=== PATIENT | male | born 1960 | race Caucasian/White ===

== ENCOUNTER → 2017-08-29 | Outpatient (CLI) | payer OTHER ==
[2017-08-29 10:35] LABS: HEMATOCRIT 47.2 % (42.0-52.0); HEMOGLOBIN 16.6 g/dl (13.5-18.0); MEAN CELL VOLUME 102 fl (80.0-100.0); MEAN CORPUSCULAR HEMOGLOBIN 36 pg (27.0-31.0); MEAN CORPUSCULAR HGB CONC 35 g/dl (33.0-37.0); MEAN PLATELET VOLUME 10.2 fl (7.4-10.4); PLATELET COUNT 257 K/mm3 (130-400); RED BLOOD COUNT 4.63 M/mm3 (4.20-5.60); REDCELL DISTRIBUTION WIDTH-CV 14.4 % (11.5-14.5)
[2017-08-29 10:55] LABS: ADJUSTED CALCIUM 8.7 mg/dL (8.4-10.2); ALBUMIN 3.9 gm/dL (3.5-5.0); BILIRUBIN,TOTAL 0.5 mg/dL (0.0-1.0); CALCIUM 8.6 mg/dL (8.4-10.2); CREATININE, serum 0.78 mg/dL (0.66-1.25); POTASSIUM 4.7 mmol/L (3.4-5.0); TOTAL PROTEIN 6.6 gm/dL (6.4-8.2)
[2017-08-29 11:24] LABS: THYROID STIMULATING HORMONE 1.84 uIU/mL (0.465-4.680)
== END ==
LOC: COL.LAB 10:00
DX: I10 Essential (primary) hypertension (principal)

== ENCOUNTER 2018-04-21 15:45 | Emergency (ER) | payer OTHER ==
[~2018-04-21] VITALS: Ht 170.2 cm; Wt 77.3 kg
[2018-04-21 15:45] VITALS: TEMP 98.7
[2018-04-21] MEDS ORDERED: PRINIVIL20 MG PO (15:58)
[2018-04-21 17:30] LABS: BASO % 0.5 % (0.0-2.0); EOS # 0.1 (0.0-0.7); EOS % 1.1 % (0-4.0); GRAN # 6.2 (1.4-6.5); GRAN % 71.1 % (42.2-75.2); HEMATOCRIT 37.6 % (42.0-52.0); HEMOGLOBIN 12.8 g/dl (13.5-18.0); LYMPH # 1.5 (1.2-3.4); LYMPH % 17.1 % (20.0-51.0); MEAN CELL VOLUME 101 fl (80.0-100.0); MEAN CORPUSCULAR HEMOGLOBIN 34 pg (27.0-31.0); MEAN CORPUSCULAR HGB CONC 34 g/dl (33.0-37.0); MEAN PLATELET VOLUME 10.3 fl (7.4-10.4); MONO # 0.8 (0.1-0.6); MONO % 9.5 % (1.7-9.3); PLATELET COUNT 197 K/mm3 (130-400); RED BLOOD COUNT 3.74 M/mm3 (4.20-5.60); REDCELL DISTRIBUTION WIDTH-CV 13.4 % (11.5-14.5)
[2018-04-21 17:50] LABS: BILIRUBIN,TOTAL 1.1 mg/dL (0.0-1.0); CALCIUM 9.5 mg/dL (8.4-10.2); CREATININE, serum 0.97 mg/dL (0.66-1.25); POTASSIUM 4.9 mmol/L (3.4-5.0); TOTAL PROTEIN 7.2 gm/dL (6.4-8.2)
[2018-04-21 18:35] VITALS: BP 184/97; PULSE 68
== END 2018-04-21 18:35 | disposition short-term general hospital (02) ==
LOC: COL.ER 15:45
PROVIDERS: Emergency Medicine
DX: S02.119A Unspecified fracture of occiput, initial encounter for closed fracture (principal); S06.339A Contusion and laceration of cerebrum, unspecified, with loss of consciousness of unspecified duration, initial encounter; S06.0X9A Concussion with loss of consciousness of unspecified duration, initial encounter; I10 Essential (primary) hypertension; Z23 Encounter for immunization; V29.40XA Motorcycle driver injured in collision with unspecified motor vehicles in traffic accident, initial encounter
CPT/HCPCS: J2765; J3010; J7030

== ENCOUNTER → 2019-02-03 | Outpatient (CLI) | payer SELFPAY ==
[~2019-02-03] MED LIST: PRINIVIL20 MG PO
[2019-02-03 15:56] LABS: ALBUMIN 4.2 gm/dL (3.5-5.0); BILIRUBIN,TOTAL 0.6 mg/dL (0.0-1.0); CALCIUM 9.9 mg/dL (8.4-10.2); CREATININE, serum 1.02 mg/dL (0.66-1.25); POTASSIUM 5.7 mmol/L (3.4-5.0)
== END ==
LOC: ZCOL.LAB 14:52
DX: I10 Essential (primary) hypertension (principal)

== ENCOUNTER → 2019-02-04 | Outpatient (CLI) | payer SELFPAY ==
[2019-02-04 13:29] LABS: CALCIUM 9.1 mg/dL (8.4-10.2); CREATININE, serum 1.13 mg/dL (0.66-1.25); POTASSIUM 4.4 mmol/L (3.4-5.0)
== END ==
LOC: COL.LAB 12:18
DX: E87.8 Other disorders of electrolyte and fluid balance, not elsewhere classified (principal)

== ENCOUNTER → 2019-02-10 | Outpatient (CLI) | payer SELFPAY ==
[2019-02-10 13:37] LABS: CALCIUM 9.2 mg/dL (8.4-10.2); CREATININE, serum 0.96 mg/dL (0.66-1.25); POTASSIUM 4.8 mmol/L (3.4-5.0)
== END ==
LOC: ZLAB.FHCC 13:21
DX: Z01.89 Encounter for other specified special examinations (principal)

== ENCOUNTER → 2019-03-04 | Outpatient (CLI) | payer SELFPAY ==
[2019-03-04 18:47] LABS: HEMATOCRIT 41.9 % (42.0-52.0); HEMOGLOBIN 15.1 g/dl (13.5-18.0); MEAN CELL VOLUME 96 fl (80.0-100.0); MEAN CORPUSCULAR HEMOGLOBIN 35 pg (27.0-31.0); MEAN CORPUSCULAR HGB CONC 36 g/dl (33.0-37.0); MEAN PLATELET VOLUME 10.1 fl (7.4-10.4); PLATELET COUNT 314 K/mm3 (130-400); RED BLOOD COUNT 4.35 M/mm3 (4.20-5.60)
[2019-03-04 18:54] LABS: CALCIUM 9.6 mg/dL (8.4-10.2); CHOLESTEROL RISK RATIO 1.7; CREATININE, serum 0.88 (0.66-1.25); POTASSIUM 3.9 mmol/L (3.4-5.0)
== END ==
LOC: ZCOL.LAB 16:55
DX: I10 Essential (primary) hypertension (principal)

== ENCOUNTER → 2019-03-30 | Outpatient (CLI) | payer SELFPAY ==
[2019-03-30 18:33] LABS: CALCIUM 9.1 mg/dL (8.4-10.2); CREATININE, serum 0.86 (0.66-1.25); POTASSIUM 4.6 mmol/L (3.4-5.0)
== END ==
LOC: ZLAB.FHCC 15:57
PROVIDERS: Family Medicine
DX: Z01.89 Encounter for other specified special examinations (principal)

== ENCOUNTER 2019-05-18 14:11 | Emergency (ER) | payer SELFPAY ==
[~2019-05-18] VITALS: Ht 170.2 cm; Wt 74.5 kg
[2019-05-18 14:17] VITALS: TEMP 98.1
[2019-05-18] MEDS ORDERED: CEPHALEXIN500 M1 PO (15:46)
[2019-05-18 16:02] VITALS: BP 139/90; PULSE 84
== END 2019-05-18 16:03 | disposition home or self-care (01) ==
LOC: COL.ER 14:11
DX: S61.012A Laceration without foreign body of left thumb without damage to nail, initial encounter (principal); S60.112A Contusion of left thumb with damage to nail, initial encounter; I10 Essential (primary) hypertension; Z23 Encounter for immunization; W26.8XXA Contact with other sharp object(s), not elsewhere classified, initial encounter

== ENCOUNTER 2019-06-03 12:15 | Inpatient (IN) | payer OTHER ==
[~2019-06-03] VITALS: Ht 170.2 cm; Wt 76.2 kg
[2019-06-03] VITALS (24 sets, daily range): BP systolic 92–138; BP diastolic 53–77; PULSE 95–120; TEMP 98–99.7; O2SAT 76–100
[~2019-06-03 12:15] MED LIST changes: +CEPHALEXIN500 M1 PO
[2019-06-03] MEDS ORDERED: ASPIRIN 81M81 MG/TA2 PO (12:34)
[2019-06-03 12:55] LABS: BASO % 0.2 % (0.0-2.0); EOS % 0.1 % (0-4.0); GRAN # 12.4 (1.4-6.5); GRAN % 81.4 % (42.2-75.2); LYMPH # 1.8 (1.2-3.4); LYMPH % 11.8 % (20.0-51.0); MEAN CELL VOLUME 103 fl (80.0-100.0); MEAN CORPUSCULAR HGB CONC 34 g/dl (33.0-37.0); MEAN PLATELET VOLUME 10.3 fl (7.4-10.4); MONO # 0.9 (0.1-0.6); MONO % 5.8 % (1.7-9.3); PLATELET COUNT 220 K/mm3 (130-400); RED BLOOD COUNT 1.91 M/mm3 (4.20-5.60); REDCELL DISTRIBUTION WIDTH-CV 12.7 % (11.5-14.5)
[2019-06-03 12:59] LABS: HEMATOCRIT 19.7 % (42.0-52.0); HEMOGLOBIN 6.7 g/dl (13.5-18.0); MEAN CORPUSCULAR HEMOGLOBIN 35 pg (27.0-31.0)
[2019-06-03 13:05] LABS: ALBUMIN 2.9 gm/dL (3.5-5.0); BILIRUBIN,TOTAL 0.1 mg/dL (0.0-1.0); C-REACTIVE PROTEIN 2.2 mg/dL (0.0-0.9); CALCIUM 8.6 mg/dL (8.4-10.2); CREATININE, serum 1.46 (0.66-1.25); POTASSIUM 4.3 mmol/L (3.4-5.0); TOTAL PROTEIN 5.2 gm/dL (6.4-8.2)
--- NOTE | 2019-06-03 14:24 | NUR ---
Pt arrived via End[facility] cart, pt transfered self to ICU bed. Pt AAOx4, stating "I feel much better than I did when I arrived to ER". Monitors attached, VSS. Charanjit MD and PA at bedside assessing pt
--- NOTE | 2019-06-03 14:24 | NUR ---
Phone report recieved from Segundo Archuleta
[2019-06-03] MEDS ORDERED: MOTRIN 800800 MG/TAB PO (15:00)
[2019-06-03 17:04] LABS: HEMATOCRIT 19.4 % (42.0-52.0)
[2019-06-03 17:05] LABS: HEMOGLOBIN 6.6 g/dl (13.5-18.0)
--- NOTE | 2019-06-03 19:30 | NUR ---
Bedside report received from HARPER Baum. Patient's sister at the bedside.
--- NOTE | 2019-06-03 20:00 | NUR ---
Patient is laying in bed watching TV. He is alert and oriented, following commands. Assessment complete. Lungs are clear bilaterally with slightly diminished bases. HR and rhythm regular but tachycardic. Normal S1 and S2 heard. Bowels are active x4. Patient is febrile at 99.7. Patient also has visible tremors. Will follow protocol for CIWA. Patient has no complaints of pain. Will continue to monitor. Call light within reach.
[2019-06-04] VITALS (10 sets, daily range): BP systolic 97–141; BP diastolic 53–79; PULSE 85–856; TEMP 97.9–99.2
--- NOTE | 2019-06-04 | NUR ---
Patient awake at this time. Lab is drawing blood. Patient has no complaints of pain. Vitals remain stable. No further needs at this time. Will continue to monitor. Call light within reach.
[2019-06-04 00:25] LABS: HEMATOCRIT 18.8 % (42.0-52.0); HEMOGLOBIN 6.6 g/dl (13.5-18.0)
--- NOTE | 2019-06-04 04:00 | NUR ---
Patient asleep at this time. Has no current needs. Vitals obtained and remain stable. No further needs. Will continue to monitor. Call light within reach.
--- NOTE | 2019-06-04 05:30 | NUR ---
Assisted patient up to the restroom at this time. Patient is able to stand and walk independently. Provided warm bath wipes. Patient also performed oral care. Returns to bed.
--- NOTE | 2019-06-04 06:10 | NUR ---
Dr. Dee at the bedside. Discusses care of left thumb and removes bandaids. The removal of the bandaids acts as debridement and takes some of the sloughing tissue with it. Dr. Dee wants the thumb kept as dry as possible and to keep bandaids on the bleeding areas of the thumb and to remove when dirty or falling off with the intention that this will help debride the wound. Patient's tissue is raw underneath the debridement and bleeding. Dr Dee applies new bandaids to open areas.
--- NOTE | 2019-06-04 07:15 | NUR ---
Report received from HARPER Pereyra. PT in bed resting, feelign well, wants to shave himself, will provide needed equipment and continue to monitor.
--- NOTE | 2019-06-04 07:25 | NUR ---
Bedside report given to HARPER Holbrook.
[2019-06-04 08:17] LABS: BASO % 0.3 % (0.0-2.0); EOS % 0.3 % (0-4.0); GRAN % 74.6 % (42.2-75.2); LYMPH # 1.7 (1.2-3.4); LYMPH % 18.3 % (20.0-51.0); MEAN CORPUSCULAR HGB CONC 34 g/dl (33.0-37.0); MEAN PLATELET VOLUME 9.8 fl (7.4-10.4); MONO # 0.6 (0.1-0.6); MONO % 5.9 % (1.7-9.3); PLATELET COUNT 140 K/mm3 (130-400); RED BLOOD COUNT 2.33 M/mm3 (4.20-5.60); REDCELL DISTRIBUTION WIDTH-CV 18.2 % (11.5-14.5)
[2019-06-04 08:19] LABS: HEMATOCRIT 22.1 % (42.0-52.0); HEMOGLOBIN 7.6 g/dl (13.5-18.0); MEAN CELL VOLUME 95 fl (80.0-100.0); MEAN CORPUSCULAR HEMOGLOBIN 33 pg (27.0-31.0)
[2019-06-04 08:25] LABS: ALBUMIN 2.3 gm/dL (3.5-5.0); BILIRUBIN,TOTAL 0.3 mg/dL (0.0-1.0); CALCIUM 7.4 mg/dL (8.4-10.2); CREATININE, serum 0.78 (0.66-1.25); MAGNESIUM 1.7 mg/dL (1.6-2.3); TOTAL PROTEIN 4.4 gm/dL (6.4-8.2)
--- NOTE | 2019-06-04 09:40 | NUR ---
Assessment charted. Pt states he feels "100 times better than yesterday". Taking PO well. Up to toilet, steady gait. Had one dark brown bm that had some form to it. IVF to RW, INT to LF. Pt doing well, will continue to monitor.
--- NOTE | 2019-06-04 12:43 | NUR ---
Pt aware of transfer to floor, also aware we have a bed shortage at this time, will update him when possible.
--- NOTE | 2019-06-04 15:19 | NUR ---
SW met with patient to discuss discharge planning. Patient lives independently at home alone. Patient does have family support from his siblings. Patient receives primary care from the [facility] and he obtains prescriptions from [facility]. Patient reports he is able to pay for his medications because he makes extra money by donating plasma. Patient does not have insurance and was seen by the financial counselor to complete a financial assistance application. Patient is independent with all ADLs and does not require any home health or DME. Patient does not have a DPOA-HC but would like to review the form with his family after discharge. SW provided form. Patient plans to return home upon discharge. SW will continue to follow and assist with any discharge needs.
--- NOTE | 2019-06-04 18:04 | NUR ---
Pt resting in bed. Has been up to bathroom several times today, had 2 bowel movements and then after that just gas. Still feels remarkably well compared to yesterday. IVF d/c'd per orders. Taking PO well and tolerating advanced diet well. Denies needs, will give bedside shift report to nightshift nurse who will resume care.
--- NOTE | 2019-06-04 21:00 | NUR ---
Patient assessed at this time. Alert and oriented x 4, and able to make needs known. Complained of level 7 pain to left thumb, where laceration is. Bandaids to area are CDI at this time. Given PRN APAP as requested for pain. Denies having SOB and dyspnea. LS CTA. Respirations even and unlabored. HRR. BSAx4. Abdomen rouns, soft, and non-tender. No edema noted. Voided. Urine is clear and yellow. Given education on medications, and printed education sheets as requested. IV sites to left forearm and right wrist flushed. Sites are without redness, warmth, swelling, and pain. Resting in bed watching TV at this time. Voices no other questions, needs, or concerns. Call light is within reach.
[2019-06-05 00:26] VITALS: BP 157/81; PULSE 81; TEMP 98.8
[2019-06-05 02:18] VITALS: BP 124/65; PULSE 85; TEMP 98.5
--- NOTE | 2019-06-05 02:27 | NUR ---
Patient had changed dressing to left thumb around 2300. Reported pain was a little better after receiving PRN APAP around 2100. Patient has not had any further complaints of pain or discomfort at this time. Sat up reading in bed until around 0100. Patient has been using bedside urinal. Voiced no questions, needs, or concerns so far this shift. Resting in bed with eyes closed at this time. Call light is within reach.
[2019-06-05 05:07] VITALS: BP 147/87; PULSE 95; TEMP 98.5
[2019-06-05 05:59] LABS: BASO % 0.3 % (0.0-2.0); EOS # 0.1 (0.0-0.7); EOS % 1.2 % (0-4.0); GRAN # 5.4 (1.4-6.5); GRAN % 73.2 % (42.2-75.2); LYMPH # 1.3 (1.2-3.4); LYMPH % 17.5 % (20.0-51.0); MEAN CELL VOLUME 97 fl (80.0-100.0); MEAN CORPUSCULAR HGB CONC 33 g/dl (33.0-37.0); MEAN PLATELET VOLUME 10.2 fl (7.4-10.4); MONO # 0.5 (0.1-0.6); MONO % 7.3 % (1.7-9.3); PLATELET COUNT 160 K/mm3 (130-400); REDCELL DISTRIBUTION WIDTH-CV 18.4 % (11.5-14.5)
[2019-06-05 06:04] LABS: CALCIUM 8.1 mg/dL (8.4-10.2); CREATININE, serum 0.79 (0.66-1.25); POTASSIUM 3.9 mmol/L (3.4-5.0)
[2019-06-05 06:05] LABS: HEMATOCRIT 22.3 % (42.0-52.0); HEMOGLOBIN 7.3 g/dl (13.5-18.0); MEAN CORPUSCULAR HEMOGLOBIN 32 pg (27.0-31.0)
[2019-06-05 08:00] VITALS: BP 111/72; PULSE 74; TEMP 98.5
--- NOTE | 2019-06-05 08:00 | NUR ---
Shift assessment complete at this time. Plan of care reviewed at bedside with patient. Additional time taken to address any other needs or concerns. Vitals stable at this time. Bed in low position, call light within reach. Denies pain or any other discomfort. Will continue to monitor.
[2019-06-05] MEDS ORDERED: CARAFATE 1GM1 G PO (09:46)
[2019-06-05] MEDS ORDERED: PROTONIX 40MG T40 MG PO (09:46)
[2019-06-05] MEDS ORDERED: PERIDEX (CHLOR480 ML MM (09:47)
== END 2019-06-05 10:31 | disposition home or self-care (01) | DRG 378 ==
LOC: COL.ER 12:15 → ICU 14:50
PROVIDERS: Family Medicine; Internal Medicine Gastroenterology; Nurse Practitioner Family; ADMIT Internal Medicine
PROC: 0W3P8ZZ Control Bleeding in Gastrointestinal Tract, Via Natural or Artificial Opening Endoscopic (ICD-10-PCS; 2019-06-03)
PROC: 0DB68ZX Excision of Stomach, Via Natural or Artificial Opening Endoscopic, Diagnostic (ICD-10-PCS; principal; 2019-06-03 13:30)
DX: K26.4 Chronic or unspecified duodenal ulcer with hemorrhage (principal); R65.10 Systemic inflammatory response syndrome (SIRS) of non-infectious origin without acute organ dysfunction; N17.9 Acute kidney failure, unspecified; S61.012D Laceration without foreign body of left thumb without damage to nail, subsequent encounter; W26.0XXD Contact with knife, subsequent encounter; I10 Essential (primary) hypertension; I95.9 Hypotension, unspecified; F17.210 Nicotine dependence, cigarettes, uncomplicated; F10.10 Alcohol abuse, uncomplicated; K04.7 Periapical abscess without sinus; D50.0 Iron deficiency anemia secondary to blood loss (chronic)
CPT/HCPCS: 99223-AI; 99233-AI; 99239; C9113; J2060; J2405; J7030; P9016

== ENCOUNTER → 2019-07-22 | Outpatient (CLI) | payer OTHER ==
[~2019-07-22] MED LIST changes: +ASPIRIN 81M81 MG/TA2 PO; +CARAFATE 1GM1 G PO; +MOTRIN 800800 MG/TAB PO; +PERIDEX (CHLOR480 ML MM; +PROTONIX 40MG T40 MG PO
[2019-07-22 20:52] LABS: HEMOGLOBIN 11.3 g/dl (13.5-18.0)
[2019-07-22 20:53] LABS: HEMATOCRIT 35.4 % (42.0-52.0)
== END ==
LOC: EDBD 19:55 → ZLAB.FHCC 19:55
PROVIDERS: Family Medicine
DX: I10 Essential (primary) hypertension (principal); D64.9 Anemia, unspecified

== ENCOUNTER → 2019-11-09 | Outpatient (CLI) | payer SELFPAY ==
[2019-11-09 18:43] LABS: BASO # 0.1 (0.0-0.2); BASO % 0.6 % (0.0-2.0); EOS # 0.2 (0.0-0.7); GRAN # 5.1 (1.4-6.5); GRAN % 64.5 % (42.2-75.2); LYMPH # 1.5 (1.2-3.4); LYMPH % 19.2 % (20.0-51.0); MEAN CELL VOLUME 99 fl (80.0-100.0); MEAN CORPUSCULAR HGB CONC 33 g/dl (33.0-37.0); MEAN PLATELET VOLUME 11.6 fl (7.4-10.4); MONO # 1.1 (0.1-0.6); MONO % 13.4 % (1.7-9.3); PLATELET COUNT 307 K/mm3 (130-400); RED BLOOD COUNT 2.98 M/mm3 (4.20-5.60); REDCELL DISTRIBUTION WIDTH-CV 18.6 % (11.5-14.5)
[2019-11-09 18:47] LABS: HEMATOCRIT 29.6 % (42.0-52.0); HEMOGLOBIN 9.8 g/dl (13.5-18.0); MEAN CORPUSCULAR HEMOGLOBIN 33 pg (27.0-31.0)
== END ==
LOC: ZLAB.FHCC 16:16
PROVIDERS: Family Medicine
DX: Z01.89 Encounter for other specified special examinations (principal)

== ENCOUNTER → 2019-12-21 | Outpatient (CLI) | payer SELFPAY ==
[2019-12-21 12:13] LABS: HEMATOCRIT 37.9 % (42.0-52.0); HEMOGLOBIN 12.5 g/dl (13.5-18.0)
== END ==
LOC: ZLAB.FHCC 10:54
PROVIDERS: Family Medicine
DX: Z01.89 Encounter for other specified special examinations (principal)

== ENCOUNTER → 2022-04-11 | Outpatient (CLI) | payer SELFPAY | LOC: COL.VAS 09:49 | DX: I08.0 Rheumatic disorders of both mitral and aortic valves (principal) ==